=== PATIENT | female | born 1955 | race Caucasian/White ===

== ENCOUNTER 2016-09-29 19:39 | Emergency (ER) | payer BC ==
[2006-04-22 05:58] VITALS: BP 155/88
[~2016-09-29] VITALS: Ht 160 cm; Wt 68.2 kg
[~2016-09-29 19:39] MED LIST: ASACOL PO; ATARAX 25MG25 MG/TAB PO; BUSPAR5 MG PO; BYSTOLIC10 MG PO; CATAPRES 0.1MG0.1 MG PO; CATAPRES0.2 MG PO; CATAPRES0.3 MG PO; CLONIDINE0.1 MG PO; CORGARD80 MG PO; COZAAR100 MG PO; DILAUDID 2MG TAB2 MG PO; FLAGYL500 MG PO; FLEXERIL 1010 MG/TAB PO; K-DUR20 MEQ PO; LASIX 20MG TABL20 MG PO; LEVAQUIN 750MG750 M1 PO; LISINOPRIL10 MG PO; LOMOTIL 0.025 M1 TAB PO; LORTAB 5/500 501 TAB PO; NITROGLYCER0.1 MG/H1 TD; NORCO 325 MG-51 TAB PO; NORVASC 10MG10 MG PO; PHENERGAN 25 TA25 MG PO; PHENERGAN25 MG RC; PHENERGAN50 M1 PO; PLAVIX 75MG TAB75 MG PO; PRINIVIL40 MG PO; PROTONIX 40MG T40 MG PO; ROXICODONE 55 MG/TAB PO; TOPROL XL100 MG PO; TYLENOL 500MG500 MG PO; XANAX 0.5MG0.5 MG PO; XANAX 1MG1 MG; XANAX0.5 MG PO; ZANTAC 150MG T150 MG PO; ZOFRAN ODT4 MG PO; ZOFRAN ODT8 MG PO
[2016-09-29 19:42] VITALS: TEMP 97.6
[2016-09-29 20:27] LABS: BASO # 0.1 (0.0-0.2); BASO % 1.1 % (0.0-2.0); EOS # 0.5 (0.0-0.7); EOS % 5.3 % (0-4.0); GRAN # 4.7 (1.4-6.5); GRAN % 54.6 % (42.2-75.2); HEMOGLOBIN 15.2 g/dl (12.5-16.0); LYMPH # 2.9 (1.2-3.4); LYMPH % 33.7 % (20.0-51.0); MEAN CELL VOLUME 90 fl (80.0-100.0); MEAN CORPUSCULAR HEMOGLOBIN 31 pg (27.0-31.0); MEAN CORPUSCULAR HGB CONC 35 g/dl (33.0-37.0); MEAN PLATELET VOLUME 9.6 fl (7.4-10.4); MONO # 0.4 (0.1-0.6); MONO % 5.1 % (1.7-9.3); PLATELET COUNT 296 K/mm3 (130-400); REDCELL DISTRIBUTION WIDTH-CV 13.2 % (11.5-14.5); WHITE BLOOD COUNT 8.5 K/mm3 (4.8-10.8)
[2016-09-29 20:42] LABS: ADJUSTED CALCIUM 9.5 mg/dL (8.4-10.2); ALANINE AMINOTRANSFERASE 26 U/L (9-52); ALBUMIN 4.3 gm/dL (3.5-5.0); ALKALINE PHOSPHATASE 104 U/L (50-136); ANION GAP 12 mmol/L (7-16); BILIRUBIN,TOTAL 0.7 mg/dL (0.0-1.0); BLOOD UREA NITROGEN 12 mg/dL (7-17); C-REACTIVE PROTEIN 1.2 mg/dL (0.0-0.9); CALCIUM 9.7 mg/dL (8.4-10.2); CARBON DIOXIDE 29 mmol/L (22-30); CHLORIDE 101 mmol/L (98-107); CREATININE, serum 0.85 mg/dL (0.52-1.25); GLUCOSE 87 mg/dL (74-106); LIPASE 39 U/L (23-300); POTASSIUM 3.6 mmol/L (3.4-5.0); SODIUM 141 mmol/L (137-145); TOTAL PROTEIN 8.2 gm/dL (6.4-8.2)
[2016-09-29 20:50] LABS: TROPONIN-I < 0.012 ng/mL (0.000-0.034)
[2016-09-29 21:05] LABS: PH 5 (5-8); URINE APPEARANCE Hazy; URINE BACTERIA Rare /hpf; URINE BILIRUBIN Negative (NEGATIVE); URINE BLOOD Negative (NEGATIVE); URINE COLOR Yellow; URINE GLUCOSE Negative (NEGATIVE); URINE KETONE Negative (NEGATIVE); URINE RBC 0-2 /hpf; URINE UROBILINOGEN Negative (NEGATIVE)
[2016-09-29] MEDS ORDERED: PHENERGAN 25 TA25 MG PO (21:40)
[2016-09-29 21:44] VITALS: BP 143/88; PULSE 58
== END 2016-09-29 21:49 | disposition home or self-care (01) ==
LOC: COL.ER 19:39
PROVIDERS: Emergency Medicine
DX: R10.84 Generalized abdominal pain (principal); R11.10 Vomiting, unspecified; R19.7 Diarrhea, unspecified; I10 Essential (primary) hypertension; F17.210 Nicotine dependence, cigarettes, uncomplicated
CPT/HCPCS: J1170; J2405; J2550; J7030

== ENCOUNTER 2017-02-25 09:39 | Day surgery (SDC) | payer MEDICARE, BC ==
[2006-04-22 05:58] VITALS: BP 155/88
[~2017-02-25] VITALS: Ht 160 cm; Wt 68.1 kg
[2017-02-25] VITALS (12 sets, daily range): BP systolic 123–171; BP diastolic 79–107; PULSE 62–78; TEMP 96.9
[2017-02-25 10:39] LABS: HEMATOCRIT 39.7 % (37.0-47.0); HEMOGLOBIN 13.7 g/dl (12.5-16.0); MEAN CELL VOLUME 89 fl (80.0-100.0); MEAN CORPUSCULAR HEMOGLOBIN 31 pg (27.0-31.0); MEAN CORPUSCULAR HGB CONC 35 g/dl (33.0-37.0); MEAN PLATELET VOLUME 10.5 fl (7.4-10.4); PLATELET COUNT 213 K/mm3 (130-400); RED BLOOD COUNT 4.46 M/mm3 (4.10-5.30); REDCELL DISTRIBUTION WIDTH-CV 13.3 % (11.5-14.5); WHITE BLOOD COUNT 6.9 K/mm3 (4.8-10.8)
[2017-02-25 10:46] LABS: PROTHROMBIN TIME 11.2 SECONDS (9.7-12.8)
[2017-02-25 10:53] LABS: CALCIUM 8.5 mg/dL (8.4-10.2); CREATININE, serum 0.72 mg/dL (0.52-1.25)
[2017-02-25] MEDS ORDERED: PROTONIX 40MG T40 MG PO (11:32)
[2017-02-25] MEDS ORDERED: XANAX 0.5MG0.5 MG PO (11:34)
[2017-02-25] MEDS ORDERED: NORVASC 10MG10 MG PO (11:37)
[2017-02-25] MEDS ORDERED: LIPITOR20 MG PO (11:38)
[2017-02-25] MEDS ORDERED: CLEOCIN HCL300 MG PO (16:17)
== END 2017-02-25 18:54 | disposition home or self-care (01) ==
LOC: EUO 09:39 → COL.CAR 10:00 → EUO 18:54
PROVIDERS: Internal Medicine Cardiovascular Disease
DX: R55 Syncope and collapse (principal); I12.9 Hypertensive chronic kidney disease with stage 1 through stage 4 chronic kidney disease, or unspecified chronic kidney disease; N18.9 Chronic kidney disease, unspecified; F41.1 Generalized anxiety disorder; Z86.73 Personal history of transient ischemic attack (TIA), and cerebral infarction without residual deficits; E78.2 Mixed hyperlipidemia; I73.9 Peripheral vascular disease, unspecified; F17.210 Nicotine dependence, cigarettes, uncomplicated; R06.00 Dyspnea, unspecified; Z95.5 Presence of coronary angioplasty implant and graft; K51.90 Ulcerative colitis, unspecified, without complications; Z90.710 Acquired absence of both cervix and uterus; Z90.5 Acquired absence of kidney; H93.19 Tinnitus, unspecified ear; G43.909 Migraine, unspecified, not intractable, without status migrainosus
CPT/HCPCS: C1760; C1764; C1894; J2250; J3010; Q9967

== ENCOUNTER 2018-07-03 06:40 | Day surgery (SDC) | payer MEDICARE, OTHER ==
[2006-04-22 05:58] VITALS: BP 155/88
[~2018-07-03] VITALS: Ht 161.3 cm; Wt 76.0 kg
[~2018-07-03 06:40] MED LIST changes: +CLEOCIN HCL300 MG PO; +LIPITOR20 MG PO; +XANAX 1MG1 MG PO
[2018-07-03 08:24] VITALS: BP 115/95; PULSE 70; TEMP 97.7
[2018-07-03] MEDS ORDERED: TYLENOL 500MG500 MG PO (08:28)
[2018-07-03] MEDS ORDERED: COZAAR100 MG PO (08:30)
[2018-07-03] MEDS ORDERED: NITROSTAT0.4 MG/TAB SL (08:32)
[2018-07-03] MEDS ORDERED: CARDIZEM CD 24240 MG PO (08:37)
[2018-07-03 10:18] VITALS: BP 134/72; PULSE 57
[2018-07-03 10:38] VITALS: BP 132/75; PULSE 61
[2018-07-03 10:45] VITALS: BP 135/106; PULSE 62
[2018-07-03] MEDS ORDERED: CLEOCIN HCL300 MG PO (10:49)
[2018-07-03 11:00] VITALS: BP 151/93; PULSE 61
== END 2018-07-03 11:49 | disposition home or self-care (01) ==
LOC: COL.CAR 06:40
DX: R07.89 Other chest pain (principal); I10 Essential (primary) hypertension; R55 Syncope and collapse; N26.9 Renal sclerosis, unspecified; I73.9 Peripheral vascular disease, unspecified; F41.1 Generalized anxiety disorder; E78.2 Mixed hyperlipidemia; G43.909 Migraine, unspecified, not intractable, without status migrainosus; F17.210 Nicotine dependence, cigarettes, uncomplicated; K51.90 Ulcerative colitis, unspecified, without complications; Z90.710 Acquired absence of both cervix and uterus; Z90.5 Acquired absence of kidney; Z88.2 Allergy status to sulfonamides; Z88.1 Allergy status to other antibiotic agents; Z88.5 Allergy status to narcotic agent; Z88.0 Allergy status to penicillin; Z88.6 Allergy status to analgesic agent; Z79.02 Long term (current) use of antithrombotics/antiplatelets; Z86.73 Personal history of transient ischemic attack (TIA), and cerebral infarction without residual deficits; Z82.61 Family history of arthritis
CPT/HCPCS: J2250; J3010; J3370; J7030

== ENCOUNTER 2019-03-24 16:57 | Emergency (ER) | payer MEDICARE, OTHER ==
[2006-04-22 05:58] VITALS: BP 155/88
[~2019-03-24] VITALS: Ht 160 cm; Wt 72.7 kg
[~2019-03-24 16:57] MED LIST changes: +CARDIZEM CD 24240 MG PO; +NITROSTAT0.4 MG/TAB SL
[2019-03-24 17:01] VITALS: TEMP 98
[2019-03-24 18:16] LABS: BASO # 0.1 (0.0-0.2); BASO % 0.6 % (0.0-2.0); EOS # 0.1 (0.0-0.7); EOS % 1.1 % (0-4.0); GRAN # 7.8 (1.4-6.5); GRAN % 72.4 % (42.2-75.2); HEMATOCRIT 45.1 % (37.0-47.0); HEMOGLOBIN 15.4 g/dl (12.5-16.0); LYMPH % 18.8 % (20.0-51.0); MEAN CELL VOLUME 91 fl (80.0-100.0); MEAN CORPUSCULAR HEMOGLOBIN 31 pg (27.0-31.0); MEAN CORPUSCULAR HGB CONC 34 g/dl (33.0-37.0); MEAN PLATELET VOLUME 10.1 fl (7.4-10.4); MONO # 0.7 (0.1-0.6); MONO % 6.7 % (1.7-9.3); PLATELET COUNT 293 K/mm3 (130-400); RED BLOOD COUNT 4.97 M/mm3 (4.10-5.30); REDCELL DISTRIBUTION WIDTH-CV 13.2 % (11.5-14.5)
[2019-03-24 18:26] LABS: CALCIUM 9.5 mg/dL (8.4-10.2); CREATININE, serum 0.81 (0.52-1.25); POTASSIUM 3.8 mmol/L (3.4-5.0)
[2019-03-24 19:18] VITALS: BP 138/86; PULSE 86
== END 2019-03-24 19:19 | disposition home or self-care (01) ==
LOC: COL.ER 16:57
PROVIDERS: Physician Assistant
DX: G43.909 Migraine, unspecified, not intractable, without status migrainosus (principal); F17.210 Nicotine dependence, cigarettes, uncomplicated; Z79.02 Long term (current) use of antithrombotics/antiplatelets
CPT/HCPCS: J1170; J2405; J2550; J7030

== ENCOUNTER 2019-05-09 11:53 | Emergency (ER) | payer MEDICARE, OTHER ==
[2006-04-22 05:58] VITALS: BP 155/88
[~2019-05-09] VITALS: Ht 162.6 cm; Wt 73.2 kg
[2019-05-09] MEDS ORDERED: LASIX 20MG TABL20 MG PO (13:09)
[2019-05-09 14:13] VITALS: BP 177/100; PULSE 64; TEMP 98.1
== END 2019-05-09 14:24 | disposition home or self-care (01) ==
LOC: COL.ER 11:53
DX: G43.909 Migraine, unspecified, not intractable, without status migrainosus (principal); I10 Essential (primary) hypertension; K50.90 Crohn's disease, unspecified, without complications; F17.210 Nicotine dependence, cigarettes, uncomplicated; Z90.49 Acquired absence of other specified parts of digestive tract; Z90.89 Acquired absence of other organs; Z79.02 Long term (current) use of antithrombotics/antiplatelets
CPT/HCPCS: J1170; J2550

== ENCOUNTER 2019-06-10 10:16 | Emergency (ER) | payer MEDICARE, OTHER ==
[2006-04-22 05:58] VITALS: BP 155/88
[~2019-06-10] VITALS: Ht 162.6 cm; Wt 72.3 kg
[2019-06-10 10:21] VITALS: TEMP 97.8
[2019-06-10 10:49] LABS: BASO # 0.1 (0.0-0.2); BASO % 0.6 % (0.0-2.0); EOS # 0.1 (0.0-0.7); EOS % 1.1 % (0-4.0); GRAN # 8.1 (1.4-6.5); GRAN % 74.8 % (42.2-75.2); HEMATOCRIT 47.8 % (37.0-47.0); HEMOGLOBIN 16.1 g/dl (12.5-16.0); LYMPH % 18.2 % (20.0-51.0); MEAN CELL VOLUME 91 fl (80.0-100.0); MEAN CORPUSCULAR HEMOGLOBIN 31 pg (27.0-31.0); MEAN CORPUSCULAR HGB CONC 34 g/dl (33.0-37.0); MEAN PLATELET VOLUME 10.3 fl (7.4-10.4); MONO # 0.5 (0.1-0.6); PLATELET COUNT 325 K/mm3 (130-400); RED BLOOD COUNT 5.25 M/mm3 (4.10-5.30); REDCELL DISTRIBUTION WIDTH-CV 13.4 % (11.5-14.5)
[2019-06-10 11:00] LABS: ALANINE AMINOTRANSFERASE 21 U/L (9-52); ALBUMIN 4.8 gm/dL (3.5-5.0); ALKALINE PHOSPHATASE 83 U/L (50-136); ANION GAP 13 mmol/L (7-16); AST,SGOT 31 U/L (15-37); BILIRUBIN,TOTAL 0.4 mg/dL (0.0-1.0); BLOOD UREA NITROGEN 9 mg/dL (7-17); C-REACTIVE PROTEIN 1.6 mg/dL (0.0-0.9); CARBON DIOXIDE 23 mmol/L (22-30); CHLORIDE 108 mmol/L (98-107); CREATININE, serum 0.72 (0.52-1.25); GLUCOSE 112 mg/dL (74-106); POTASSIUM 3.4 mmol/L (3.4-5.0); SODIUM 143 mmol/L (137-145); TOTAL PROTEIN 8.7 gm/dL (6.4-8.2)
[2019-06-10 11:10] LABS: TROPONIN-I < 0.012 ng/mL (0.000-0.035)
[2019-06-10] MEDS ORDERED: TYLENOL 325MG325 MG PO (11:14)
[2019-06-10] MEDS ORDERED: ZANAFLEX CAPSULE2 MG PO (11:17)
[2019-06-10 13:05] VITALS: BP 156/83; PULSE 86
== END 2019-06-10 13:05 | disposition home or self-care (01) ==
LOC: COL.ER 10:16
PROVIDERS: Physician Assistant
DX: R11.10 Vomiting, unspecified (principal); R51 Headache; I10 Essential (primary) hypertension; K50.90 Crohn's disease, unspecified, without complications; Z79.02 Long term (current) use of antithrombotics/antiplatelets
CPT/HCPCS: J0780; J1170; J7030

== ENCOUNTER 2019-08-06 16:46 | Emergency (ER) | payer MEDICARE, OTHER ==
[2006-04-22 05:58] VITALS: BP 155/88
[~2019-08-06] VITALS: Ht 162.6 cm; Wt 72.3 kg
[~2019-08-06 16:46] MED LIST changes: +TYLENOL 325MG325 MG PO; +ZANAFLEX CAPSULE2 MG PO
[2019-08-06 17:08] VITALS: BP 176/77
[2019-08-06 19:56] VITALS: PULSE 75; TEMP 98.2
== END 2019-08-06 19:57 | disposition home or self-care (01) ==
LOC: COL.ER 16:46
DX: G43.909 Migraine, unspecified, not intractable, without status migrainosus (principal); Z79.02 Long term (current) use of antithrombotics/antiplatelets
CPT/HCPCS: J1170; J2550

== ENCOUNTER 2019-09-09 17:29 | Emergency (ER) | payer MEDICARE, OTHER ==
[2006-04-22 05:58] VITALS: BP 155/88
[~2019-09-09] VITALS: Ht 160 cm; Wt 67.7 kg
[2019-09-09 17:33] VITALS: BP 192/112; TEMP 97.8
[2019-09-09 20:09] VITALS: PULSE 67
== END 2019-09-09 20:09 | disposition home or self-care (01) ==
LOC: COL.ER 17:29
DX: G43.909 Migraine, unspecified, not intractable, without status migrainosus (principal); Z79.02 Long term (current) use of antithrombotics/antiplatelets
CPT/HCPCS: J1170; J2550

== ENCOUNTER 2019-10-12 17:20 | Emergency (ER) | payer MEDICARE, OTHER ==
[2006-04-22 05:58] VITALS: BP 155/88
[~2019-10-12] VITALS: Ht 160 cm; Wt 68.2 kg
[2019-10-12 17:34] VITALS: BP 191/123; TEMP 98
[2019-10-12 19:13] VITALS: PULSE 73
== END 2019-10-12 19:15 | disposition home or self-care (01) ==
LOC: COL.ER 17:20
DX: I73.9 Peripheral vascular disease, unspecified (principal); M79.605 Pain in left leg; Z79.02 Long term (current) use of antithrombotics/antiplatelets; Z95.820 Peripheral vascular angioplasty status with implants and grafts; Z87.891 Personal history of nicotine dependence; Z86.79 Personal history of other diseases of the circulatory system
CPT/HCPCS: J1170

== ENCOUNTER → 2019-10-15 | Outpatient (CLI) | payer MEDICARE, OTHER | LOC: COL.VAS 13:02 | DX: I73.9 Peripheral vascular disease, unspecified (principal); Z95.820 Peripheral vascular angioplasty status with implants and grafts ==

== ENCOUNTER 2019-12-11 15:17 | Emergency (ER) | payer MEDICARE, OTHER ==
[2006-04-22 05:58] VITALS: BP 155/88
[~2019-12-11] VITALS: Ht 160 cm; Wt 72.3 kg
[~2019-12-11 15:17] MED LIST changes: +ZITHROMAX 250M250 MG PO
[2019-12-11 15:23] VITALS: TEMP 97.6
[2019-12-11] MEDS ORDERED: COREG 25MG25 MG/TAB PO (15:41)
[2019-12-11 16:13] LABS: BASO # 0.1 (0.0-0.2); BASO % 0.7 % (0.0-2.0); EOS # 0.2 (0.0-0.7); EOS % 2.1 % (0-4.0); GRAN # 5.6 (1.4-6.5); GRAN % 64.6 % (42.2-75.2); HEMATOCRIT 44.3 % (37.0-47.0); HEMOGLOBIN 14.8 g/dl (12.5-16.0); LYMPH # 2.4 (1.2-3.4); MEAN CELL VOLUME 90 fl (80.0-100.0); MEAN CORPUSCULAR HEMOGLOBIN 30 pg (27.0-31.0); MEAN CORPUSCULAR HGB CONC 33 g/dl (33.0-37.0); MEAN PLATELET VOLUME 10.8 fl (7.4-10.4); MONO # 0.5 (0.1-0.6); MONO % 5.4 % (1.7-9.3); PLATELET COUNT 262 K/mm3 (130-400); RED BLOOD COUNT 4.95 M/mm3 (4.10-5.30); REDCELL DISTRIBUTION WIDTH-CV 13.4 % (11.5-14.5)
[2019-12-11 17:04] LABS: ERYTHROCYTE SEDIMENTATION RATE 16 mm/hr (0-30)
[2019-12-11] MEDS ORDERED: NORVASC 10MG10 MG PO (17:34)
[2019-12-11 17:44] LABS: ALANINE AMINOTRANSFERASE 18 U/L (4-34); ALBUMIN 4.4 gm/dL (3.5-5.0); ALKALINE PHOSPHATASE 75 U/L (50-136); ANION GAP 6 mmol/L (7-16); AST,SGOT 27 U/L (15-37); BILIRUBIN,TOTAL 0.3 mg/dL (0.0-1.0); BLOOD UREA NITROGEN 11 mg/dL (7-17); C-REACTIVE PROTEIN 1.1 mg/dL (0.0-0.9); CALCIUM 9.4 mg/dL (8.4-10.2); CARBON DIOXIDE 27 mmol/L (22-30); CHLORIDE 107 mmol/L (98-107); GLUCOSE 95 mg/dL (74-106); POTASSIUM 3.7 mmol/L (3.4-5.0); SODIUM 141 mmol/L (137-145); TOTAL PROTEIN 8.1 gm/dL (6.4-8.2)
[2019-12-11 17:53] LABS: TROPONIN-I < 0.012 ng/mL (0.000-0.035)
[2019-12-11 20:00] VITALS: BP 172/108; PULSE 80
== END 2019-12-11 20:11 | disposition home or self-care (01) ==
LOC: COL.ER 15:17
PROVIDERS: Emergency Medicine; Physician Assistant
DX: I10 Essential (primary) hypertension (principal); R51 Headache; K21.9 Gastro-esophageal reflux disease without esophagitis; E78.5 Hyperlipidemia, unspecified; I25.10 Atherosclerotic heart disease of native coronary artery without angina pectoris; Z90.89 Acquired absence of other organs; Z87.891 Personal history of nicotine dependence; Z95.5 Presence of coronary angioplasty implant and graft; Z88.0 Allergy status to penicillin; Z79.02 Long term (current) use of antithrombotics/antiplatelets
CPT/HCPCS: J1170; J2060; J2550; J3010

== ENCOUNTER 2020-01-29 21:00 | Emergency (ER) | payer MEDICARE, OTHER ==
[2006-04-22 05:58] VITALS: BP 155/88
[~2020-01-29] VITALS: Ht 160 cm; Wt 70.5 kg
[~2020-01-29 21:00] MED LIST changes: +COREG 25MG25 MG/TAB PO; +FIORICET 325 MG1 TA1 PO; +FIORINAL 325 MG1 CAP PO
[2020-01-29 22:31] LABS: BASO # 0.1 (0.0-0.2); BASO % 0.6 % (0.0-2.0); EOS # 0.4 (0.0-0.7); EOS % 2.7 % (0-4.0); GRAN # 9.8 (1.4-6.5); HEMATOCRIT 41.9 % (37.0-47.0); HEMOGLOBIN 14.1 g/dl (12.5-16.0); LYMPH # 2.3 (1.2-3.4); LYMPH % 17.4 % (20.0-51.0); MEAN CELL VOLUME 89 fl (80.0-100.0); MEAN CORPUSCULAR HEMOGLOBIN 30 pg (27.0-31.0); MEAN CORPUSCULAR HGB CONC 34 g/dl (33.0-37.0); MEAN PLATELET VOLUME 10.5 fl (7.4-10.4); MONO # 0.7 (0.1-0.6); MONO % 5.1 % (1.7-9.3); PLATELET COUNT 269 K/mm3 (130-400); RED BLOOD COUNT 4.71 M/mm3 (4.10-5.30); REDCELL DISTRIBUTION WIDTH-CV 13.5 % (11.5-14.5)
[2020-01-29 22:41] LABS: ALBUMIN 4.3 gm/dL (3.5-5.0); BILIRUBIN,TOTAL 0.5 mg/dL (0.0-1.0); CALCIUM 9.2 mg/dL (8.4-10.2); CREATININE, serum 0.85 (0.52-1.25); POTASSIUM 3.6 mmol/L (3.4-5.0); TOTAL PROTEIN 8.1 gm/dL (6.4-8.2)
[2020-01-29 23:00] VITALS: BP 143/74; PULSE 74; TEMP 98
== END 2020-01-29 23:03 ==
LOC: COL.ER 21:00
PROVIDERS: Emergency Medicine
DX: I99.8 Other disorder of circulatory system (principal); Z79.02 Long term (current) use of antithrombotics/antiplatelets
CPT/HCPCS: J1644; J3010

== ENCOUNTER 2020-03-30 16:30 | Emergency (ER) | payer MEDICARE, OTHER ==
[2006-04-22 05:58] VITALS: BP 155/88
[~2020-03-30] VITALS: Ht 160 cm; Wt 64.5 kg
[~2020-03-30 16:30] MED LIST changes: -CATAPRES0.3 MG PO
[2020-03-30 18:59] LABS: BASO # 0.1 (0.0-0.2); BASO % 0.8 % (0.0-2.0); EOS # 0.2 (0.0-0.7); EOS % 2.8 % (0-4.0); GRAN # 5.3 (1.4-6.5); GRAN % 62.9 % (42.2-75.2); HEMATOCRIT 40.7 % (37.0-47.0); HEMOGLOBIN 13.3 g/dl (12.5-16.0); LYMPH # 2.3 (1.2-3.4); LYMPH % 27.1 % (20.0-51.0); MEAN CELL VOLUME 86 fl (80.0-100.0); MEAN CORPUSCULAR HEMOGLOBIN 28 pg (27.0-31.0); MEAN CORPUSCULAR HGB CONC 33 g/dl (33.0-37.0); MONO # 0.5 (0.1-0.6); MONO % 6.2 % (1.7-9.3); PLATELET COUNT 315 K/mm3 (130-400); RED BLOOD COUNT 4.72 M/mm3 (4.10-5.30)
[2020-03-30 19:05] LABS: INR 1.1 (0.8-3.0); PROTHROMBIN TIME 12.1 SECONDS (9.7-12.8)
[2020-03-30 19:07] LABS: PARTIAL THROMBOPLASTIN TIME 33.4 SECONDS (26.0-37.0)
[2020-03-30 19:15] LABS: ALBUMIN 4.4 gm/dL (3.5-5.0); BILIRUBIN,TOTAL 0.3 mg/dL (0.0-1.0); CALCIUM 10.1 mg/dL (8.4-10.2); CREATININE, serum 0.92 (0.52-1.25); POTASSIUM 3.1 mmol/L (3.4-5.0); TOTAL PROTEIN 8.3 gm/dL (6.4-8.2)
[2020-03-30] MEDS ORDERED: ZOLOFT 25MG25 MG PO (20:00)
[2020-03-30 23:52] VITALS: BP 116/64; PULSE 79; TEMP 98.6
--- NOTE | 2020-03-31 09:12 | NUR ---
caisson worker notified Luis Alberto with [facility] that patient transferred to [facility]. Luis Alberto will contact [facility].
== END 2020-03-30 23:54 | disposition short-term general hospital (02) ==
LOC: COL.ER 16:30
PROVIDERS: Emergency Medicine
DX: M62.262 Nontraumatic ischemic infarction of muscle, left lower leg (principal); I10 Essential (primary) hypertension; Z89.512 Acquired absence of left leg below knee; Z86.79 Personal history of other diseases of the circulatory system; Z79.02 Long term (current) use of antithrombotics/antiplatelets
CPT/HCPCS: J1170; J1644; J2550; J7030

== ENCOUNTER 2020-05-20 17:13 | Emergency (ER) | payer MEDICARE, OTHER ==
[2006-04-22 05:58] VITALS: BP 155/88
[~2020-05-20] VITALS: Ht 160 cm; Wt 59.1 kg
[~2020-05-20 17:13] MED LIST changes: +ZOLOFT 25MG25 MG PO
[2020-05-20 18:42] LABS: BASO # 0.1 (0.0-0.2); BASO % 0.7 % (0.0-2.0); EOS # 0.1 (0.0-0.7); EOS % 1.2 % (0-4.0); GRAN # 7.5 (1.4-6.5); GRAN % 73.7 % (42.2-75.2); HEMATOCRIT 38.7 % (37.0-47.0); HEMOGLOBIN 12.7 g/dl (12.5-16.0); LYMPH % 19.2 % (20.0-51.0); MEAN CELL VOLUME 81 fl (80.0-100.0); MEAN CORPUSCULAR HEMOGLOBIN 27 pg (27.0-31.0); MEAN CORPUSCULAR HGB CONC 33 g/dl (33.0-37.0); MEAN PLATELET VOLUME 10.2 fl (7.4-10.4); MONO # 0.5 (0.1-0.6); MONO % 4.8 % (1.7-9.3); PLATELET COUNT 317 K/mm3 (130-400); RED BLOOD COUNT 4.78 M/mm3 (4.10-5.30); REDCELL DISTRIBUTION WIDTH-CV 14.7 % (11.5-14.5)
[2020-05-20 18:48] LABS: PROTHROMBIN TIME 10.8 SECONDS (9.7-12.8)
[2020-05-20 18:50] LABS: ALBUMIN 4.7 gm/dL (3.5-5.0); BILIRUBIN,TOTAL 0.3 mg/dL (0.0-1.0); CALCIUM 9.9 mg/dL (8.4-10.2); CREATININE, serum 0.83 (0.52-1.25); PARTIAL THROMBOPLASTIN TIME 19.6 SECONDS (26.0-37.0); TOTAL PROTEIN 8.7 gm/dL (6.4-8.2)
[2020-05-20 21:37] VITALS: BP 123/68; PULSE 68; TEMP 97.6
== END 2020-05-20 21:37 | disposition short-term general hospital (02) ==
LOC: COL.ER 17:13
PROVIDERS: Emergency Medicine
DX: M62.262 Nontraumatic ischemic infarction of muscle, left lower leg (principal); G54.6 Phantom limb syndrome with pain; I73.9 Peripheral vascular disease, unspecified; I10 Essential (primary) hypertension; Z87.891 Personal history of nicotine dependence; Z79.02 Long term (current) use of antithrombotics/antiplatelets; Z88.0 Allergy status to penicillin; Z88.1 Allergy status to other antibiotic agents; Z88.6 Allergy status to analgesic agent; Z88.2 Allergy status to sulfonamides
CPT/HCPCS: J0780; J1170; J1644

== ENCOUNTER 2020-07-02 16:03 | Emergency (ER) | payer MEDICARE, OTHER ==
[2006-04-22 05:58] VITALS: BP 155/88
[~2020-07-02] VITALS: Ht 160 cm; Wt 56.4 kg
[2020-07-02 16:43] LABS: BASO # 0.1 (0.0-0.2); BASO % 0.8 % (0.0-2.0); EOS # 0.1 (0.0-0.7); EOS % 1.4 % (0-4.0); GRAN # 7.6 (1.4-6.5); GRAN % 74.7 % (42.2-75.2); HEMATOCRIT 39.6 % (37.0-47.0); LYMPH # 1.8 (1.2-3.4); LYMPH % 17.8 % (20.0-51.0); MEAN CELL VOLUME 83 fl (80.0-100.0); MEAN CORPUSCULAR HEMOGLOBIN 27 pg (27.0-31.0); MEAN CORPUSCULAR HGB CONC 33 g/dl (33.0-37.0); MEAN PLATELET VOLUME 10.2 fl (7.4-10.4); MONO # 0.5 (0.1-0.6); PLATELET COUNT 372 K/mm3 (130-400); RED BLOOD COUNT 4.79 M/mm3 (4.10-5.30); REDCELL DISTRIBUTION WIDTH-CV 18.1 % (11.5-14.5)
[2020-07-02 16:47] LABS: INR 1.1 (0.8-3.0); PROTHROMBIN TIME 11.8 SECONDS (9.7-12.8)
[2020-07-02 16:52] LABS: ALBUMIN 4.7 gm/dL (3.5-5.0); BILIRUBIN,TOTAL 0.4 mg/dL (0.0-1.0); CALCIUM 9.9 mg/dL (8.4-10.2); CREATININE, serum 0.86 (0.52-1.25); TOTAL PROTEIN 8.3 gm/dL (6.4-8.2)
[2020-07-02 17:02] LABS: POTASSIUM 2.9 mmol/L (3.4-5.0)
[2020-07-03 10:11] LABS: PARTIAL THROMBOPLASTIN TIME 44.8 SECONDS (26.0-37.0)
[2020-07-03 16:00] VITALS: TEMP 98.3
[2020-07-03 18:32] VITALS: BP 125/69; PULSE 84
== END 2020-07-03 18:32 | disposition short-term general hospital (02) ==
LOC: COL.ER 16:03
PROVIDERS: Emergency Medicine; Nurse Practitioner
DX: I70.222 Atherosclerosis of native arteries of extremities with rest pain, left leg (principal); E87.6 Hypokalemia; Z87.891 Personal history of nicotine dependence; Z88.0 Allergy status to penicillin; Z88.2 Allergy status to sulfonamides; Z88.1 Allergy status to other antibiotic agents; Z88.6 Allergy status to analgesic agent; Z88.8 Allergy status to other drugs, medicaments and biological substances; Z79.02 Long term (current) use of antithrombotics/antiplatelets
CPT/HCPCS: J1170; J1644; J2060; J7030; Q9967

== ENCOUNTER 2020-08-26 07:53 | Day surgery (SDC) | payer MEDICARE ==
[2006-04-22 05:58] VITALS: BP 155/88
[2020-08-26] VITALS (8 sets, daily range): BP systolic 87–120; BP diastolic 51–67; PULSE 67–81; TEMP 98.1–98.3
[~2020-08-26] VITALS: Ht 161.3 cm; Wt 59.1 kg
[2020-08-26] MEDS ORDERED: COREG12.5 MG PO (09:03)
[2020-08-26] MEDS ORDERED: KLOR-CON SPRIN10 MEQ PO (09:04)
[2020-08-26] MEDS ORDERED: ALDACTONE 25MG25 M1 PO (09:04)
[2020-08-26] MEDS ORDERED: HCTZ 25MG TAB25 MG PO (09:09)
[2020-08-26] MEDS ORDERED: NORVASC 10MG10 MG PO (09:09)
[2020-08-26] MEDS ORDERED: PEPCID 20MG TAB20 MG PO (09:10)
[2020-08-26] MEDS ORDERED: PHENERGAN 25 TA25 MG PO (09:11)
[2020-08-26] MEDS ORDERED: NORCO 325 MG-51 TAB PO (10:50)
--- NOTE | 2020-08-26 11:55 | NUR ---
TO RM 1 PER CART FROM PACU. DROWSY AND ANSWERED A FEW QUESTIONS AND FELL BACK TO SLEEP. DENIES NAUSEA AND DENIES PAIN OR DISCOMFORT. DRESSING CLEAN AND INTACT. C/O SORE UPON RAISING ARM UP.
--- NOTE | 2020-08-26 12:15 | NUR ---
PATIENT SLEEPING SOUNDLY AND SNORING. 02 98% ON 2L PER NC.
--- NOTE | 2020-08-26 12:30 | NUR ---
CONTINUES TO SLEEP SOUNDLY AND SNORING.
--- NOTE | 2020-08-26 13:00 | NUR ---
AWAKEN PATIENT AND SHE WAS STARTLED. BUT ONCE SHE WAS MORE AWAKE SHE TAKING SIPS OF WATER. RECEIVED PUDDING AND ATE 50%. DISCONTINED O2 PER NC. 02 SAT 94% ON ROOM AIR.
--- NOTE | 2020-08-26 13:15 | NUR ---
TRANSFERED TO AND TO BATHROOM. VOIDED AND WHEELED SELF BACK TO .
--- NOTE | 2020-08-26 13:35 | NUR ---
RECEIVED DISCHARGE INSTRUCTIONS AND VERBALIZED UNDERSTANDING. DISCONTINUED IV AND INT- CATHETER INTACT. CALLED PATIENTS TO CRIME ANALYST PATIENT. PATIENT GETTING DRESSED.
--- NOTE | 2020-08-26 13:45 | NUR ---
DISCHARGED PER WC BY NURSING STAFF TO PRIVATE CAR IN CARE OF LOLA.
== END 2020-08-26 14:14 | disposition home or self-care (01) ==
LOC: SDCO 07:53
DX: C77.1 Secondary and unspecified malignant neoplasm of intrathoracic lymph nodes (principal); D76.3 Other histiocytosis syndromes; C34.82 Malignant neoplasm of overlapping sites of left bronchus and lung; I10 Essential (primary) hypertension; E78.5 Hyperlipidemia, unspecified; F32.9 Major depressive disorder, single episode, unspecified; F41.9 Anxiety disorder, unspecified; Z79.02 Long term (current) use of antithrombotics/antiplatelets; Z86.718 Personal history of other venous thrombosis and embolism; Z90.710 Acquired absence of both cervix and uterus; Z88.2 Allergy status to sulfonamides; Z88.8 Allergy status to other drugs, medicaments and biological substances; Z88.6 Allergy status to analgesic agent; Z88.5 Allergy status to narcotic agent; Z91.048 Other nonmedicinal substance allergy status; Z88.0 Allergy status to penicillin; Z88.1 Allergy status to other antibiotic agents; Z90.5 Acquired absence of kidney; Z90.49 Acquired absence of other specified parts of digestive tract; Z89.512 Acquired absence of left leg below knee; Z87.891 Personal history of nicotine dependence
CPT/HCPCS: J0690; J1100; J1170; J1885; J2405; J2550; J2704; J3010; J7120

== ENCOUNTER 2020-09-16 08:57 | Day surgery (SDC) | payer MEDICARE ==
[2006-04-22 05:58] VITALS: BP 155/88
[2020-09-16] VITALS (7 sets, daily range): BP systolic 85–133; BP diastolic 48–66; PULSE 56–83; TEMP 98.1–98.4
[~2020-09-16] VITALS: Ht 161.3 cm; Wt 59.1 kg
[~2020-09-16 08:57] MED LIST changes: +ALDACTONE 25MG25 M1 PO; +COREG12.5 MG PO; +HCTZ 25MG TAB25 MG PO; +KLOR-CON SPRIN10 MEQ PO; +PEPCID 20MG TAB20 MG PO
[2020-09-16] MEDS ORDERED: NORCO 325 MG-51 TAB PO (11:09)
--- NOTE | 2020-09-16 11:33 | NUR ---
The patient arrived back to [place] [facility] from the recovery room at this time. The patient is partially oriented to self and place but continues to report pain at her incision site stating she "wants it out" cause it "hurts so much". When not aggitated the patient appears to rest comfortably with her eyes closed. Respirations even and unlabored. The bandaid and gauze dressings to her right chest appear clean, dry and intact. Nurse remians at her bedside. Will continue to monitor the patient.
--- NOTE | 2020-09-16 11:50 | NUR ---
The patient appears to be resting quietly on the cart with her eyes closed at this time. Respirations even and unlabored. Call light is within reach. Nurse remains at the patient's bedside.
--- NOTE | 2020-09-16 12:04 | NUR ---
The patient appears to be resting comfortably on the cart at this time. Respirations even and unlabored. Vital signs remain stable. The nurse remains at the patient's bedside. Will continue to monitor the patient.
--- NOTE | 2020-09-16 12:20 | NUR ---
The patient appears more alert and agrees to try a diet soda at this time. Vital signs remain stable. Call light is within reach.
--- NOTE | 2020-09-16 12:50 | NUR ---
The patient appears have tolerated the pain pill well. The patient's IV to her left anecubital was removed and a pressure dressing was applied to the site. The nurse assisted the patient to get dressed and transfer back to her wheelchair.
--- NOTE | 2020-09-16 13:05 | NUR ---
The patient was escorted out via her personal wheelchair to a private vehicle by ISA Fong. The patient's belongings and discharge paperwork were sent with her. The patient's present to drive her home.
== END 2020-09-16 13:05 | disposition home or self-care (01) ==
LOC: SDCO 08:57
DX: C34.82 Malignant neoplasm of overlapping sites of left bronchus and lung (principal); C77.1 Secondary and unspecified malignant neoplasm of intrathoracic lymph nodes; I10 Essential (primary) hypertension; I73.9 Peripheral vascular disease, unspecified; F41.0 Panic disorder [episodic paroxysmal anxiety]; F32.9 Major depressive disorder, single episode, unspecified; F41.9 Anxiety disorder, unspecified; E78.5 Hyperlipidemia, unspecified; Z20.822 Contact with and (suspected) exposure to COVID-19; F17.210 Nicotine dependence, cigarettes, uncomplicated; Z79.899 Other long term (current) drug therapy; Z79.02 Long term (current) use of antithrombotics/antiplatelets; Z86.718 Personal history of other venous thrombosis and embolism; Z89.512 Acquired absence of left leg below knee; Z87.891 Personal history of nicotine dependence; Z88.5 Allergy status to narcotic agent; Z88.0 Allergy status to penicillin; Z88.2 Allergy status to sulfonamides; Z88.6 Allergy status to analgesic agent; Z88.1 Allergy status to other antibiotic agents; Z91.040 Latex allergy status; Z80.3 Family history of malignant neoplasm of breast
CPT/HCPCS: C1788; J1100; J1644; J2704; J3010; J7120

== ENCOUNTER 2021-06-09 18:54 | Emergency (ER) | payer MEDICARE ==
[~2021-06-09] VITALS: Ht 162.6 cm; Wt 50.9 kg
[2021-06-09 19:56] VITALS: TEMP 97.8
[2021-06-09 20:47] LABS: BASO # 0.1 K/mm3 (0.0-0.2); BASO % 0.8 % (0.0-2.0); EOS # 0.2 K/mm3 (0.0-0.7); EOS % 2.9 % (0-4.0); GRAN # 4.3 K/mm3 (1.4-6.5); GRAN % 68.9 % (42.2-75.2); HEMATOCRIT 36.8 % (37.0-47.0); HEMOGLOBIN 12.2 g/dl (12.5-16.0); LYMPH # 1.3 K/mm3 (1.2-3.4); LYMPH % 20.2 % (20.0-51.0); MEAN CELL VOLUME 91 fl (80.0-100.0); MEAN CORPUSCULAR HEMOGLOBIN 30 pg (27.0-31.0); MEAN CORPUSCULAR HGB CONC 33 g/dl (33.0-37.0); MONO # 0.4 K/mm3 (0.1-0.6); MONO % 6.9 % (1.7-9.3); PLATELET COUNT 213 K/mm3 (130-400); RED BLOOD COUNT 4.04 M/mm3 (4.10-5.30)
[2021-06-09 20:58] LABS: INR 1.1 (0.8-3.0); PROTHROMBIN TIME 11.7 SECONDS (9.7-12.8)
[2021-06-09 21:02] LABS: ALBUMIN 3.7 gm/dL (3.4-4.8); BILIRUBIN,TOTAL 0.2 mg/dL (0.2-1.2); CALCIUM 9.9 mg/dL (8.4-10.2); CREATININE, serum 1.04 mg/dL (0.57-1.11)
[2021-06-10 00:25] VITALS: BP 99/65; PULSE 63
[2021-06-10 01:13] LABS: PARTIAL THROMBOPLASTIN TIME 40.4 SECONDS (26.0-37.0)
== END 2021-06-10 00:25 | disposition home or self-care (01) ==
LOC: COL.ER 18:54
PROVIDERS: Personal Emergency Response Attendant
DX: I73.9 Peripheral vascular disease, unspecified (principal); Z85.79 Personal history of other malignant neoplasms of lymphoid, hematopoietic and related tissues; Z87.891 Personal history of nicotine dependence; Z79.02 Long term (current) use of antithrombotics/antiplatelets
CPT/HCPCS: J1790; J3010; Q9967

== ENCOUNTER 2021-06-30 12:21 | Emergency (ER) | payer MEDICARE ==
[~2021-06-30] VITALS: Ht 160 cm; Wt 54.5 kg
[2021-06-30 12:31] VITALS: TEMP 97.7
[2021-06-30 13:25] LABS: BASO # 0.1 K/mm3 (0.0-0.2); BASO % 0.9 % (0.0-2.0); EOS # 0.1 K/mm3 (0.0-0.7); EOS % 0.8 % (0-4.0); GRAN # 5.6 K/mm3 (1.4-6.5); GRAN % 73.6 % (42.2-75.2); HEMATOCRIT 38.6 % (37.0-47.0); HEMOGLOBIN 12.9 g/dl (12.5-16.0); LYMPH # 1.3 K/mm3 (1.2-3.4); LYMPH % 17.2 % (20.0-51.0); MEAN CELL VOLUME 90 fl (80.0-100.0); MEAN CORPUSCULAR HEMOGLOBIN 30 pg (27.0-31.0); MEAN CORPUSCULAR HGB CONC 33 g/dl (33.0-37.0); MEAN PLATELET VOLUME 9.9 fl (7.4-10.4); MONO # 0.5 K/mm3 (0.1-0.6); MONO % 7.1 % (1.7-9.3); PLATELET COUNT 217 K/mm3 (130-400); RED BLOOD COUNT 4.27 M/mm3 (4.10-5.30); REDCELL DISTRIBUTION WIDTH-CV 15.4 % (11.5-14.5)
[2021-06-30 13:44] LABS: ALANINE AMINOTRANSFERASE 11 U/L (0-55); ALBUMIN 4.1 gm/dL (3.4-4.8); ALKALINE PHOSPHATASE 61 U/L (40-150); ANION GAP 14 mmol/L (7-16); AST,SGOT 19 U/L (5-34); BILIRUBIN,TOTAL 0.5 mg/dL (0.2-1.2); BLOOD UREA NITROGEN 18 mg/dL (10-20); C-REACTIVE PROTEIN 0.77 mg/dL (0.00-0.50); CALCIUM 9.5 mg/dL (8.4-10.2); CARBON DIOXIDE 23 mmol/L (23-31); CHLORIDE 102 mmol/L (98-107); CREATININE, serum 1.06 mg/dL (0.57-1.11); GLUCOSE 84 mg/dL (70-99); LIPASE 22 U/L (8-78); SODIUM 139 mmol/L (136-145); TOTAL PROTEIN 8.1 gm/dL (6.2-8.1)
[2021-06-30 14:09] LABS: POTASSIUM 2.6 mmol/L (3.5-4.5); TROPONIN-I < 0.010 ng/mL (0.00-0.033)
[2021-06-30 15:30] VITALS: BP 142/75; PULSE 79
== END 2021-06-30 15:30 | disposition left against medical advice (07) ==
LOC: COL.ER 12:21
PROVIDERS: Emergency Medicine
DX: T87.9 Unspecified complications of amputation stump (principal); E87.6 Hypokalemia; I73.9 Peripheral vascular disease, unspecified; I10 Essential (primary) hypertension; F17.210 Nicotine dependence, cigarettes, uncomplicated; Z20.822 Contact with and (suspected) exposure to COVID-19; Z79.899 Other long term (current) drug therapy
CPT/HCPCS: J1170; J2550; J3010; J3480; J7030; Q9967